=== PATIENT | male | born 1960 | race Caucasian/White ===

== ENCOUNTER → 2017-07-31 | Outpatient (CLI) | payer OTHER | LOC: BMCIMAGING 11:08 | PROVIDERS: ATTEND Internal Medicine Rheumatology | DX: M50.320 Other cervical disc degeneration, mid-cervical region, unspecified level (principal); M16.0 Bilateral primary osteoarthritis of hip ==

== ENCOUNTER → 2018-03-05 | Outpatient (CLI) | payer MEDICAID | LOC: FIMAGING 08:18 | PROVIDERS: ATTEND Internal Medicine | DX: Z12.2 Encounter for screening for malignant neoplasm of respiratory organs (principal); R91.8 Other nonspecific abnormal finding of lung field; J98.4 Other disorders of lung; E04.1 Nontoxic single thyroid nodule; F17.200 Nicotine dependence, unspecified, uncomplicated ==

== ENCOUNTER → 2018-10-08 | Outpatient (CLI) | payer MEDICAID | LOC: BMCIMAGING 11:11 | PROVIDERS: ATTEND Family Medicine | DX: S92.252A Displaced fracture of navicular [scaphoid] of left foot, initial encounter for closed fracture (principal) ==